=== PATIENT | male | born 1990 | race Caucasian/White ===

== ENCOUNTER 2018-12-06 10:36 | Emergency (ER) | payer BC ==
[2018-12-06] MEDS: Sodium Chloride 0.9% 1,000 ML IV ONE (10:45)
--- NOTE | 2018-12-06 11:28 | EDM.PDOC ---
ED HPI GENERAL MEDICAL PROBLEM - General Stated Complaint: CUT ARM Time Seen by Provider: 12/06/18 10:45 Source of Information: Reports: Patient History Limitations: Reports: No Limitations - History of Present Illness INITIAL COMMENTS - FREE TEXT/NARRATIVE: Comes in the emergency department with a left-hand laceration. Patient states that he was at home using a utility knife and slipped off the piece that he was cutting and it completed a puncture wound into his left wrist area causing a substantial amount of bleeding. Patient states he is not able to control the bleeding prior to arrival. He had gone through 2-3 paper towels and then use a towel from the bathroom without success. Patient comes in with active bleeding to the left hand. Denies any CMS concerns or decrease in range of motion. Patient denies feeling nauseated, dizzy, change in vision, abdominal pain or chest pain. His last tetanus was approximately 2 years ago. Patient denies any other injuries or concerns. Onset: Sudden Location: Reports: Upper Extremity, Left Improves with: Reports: None Worsens with: Reports: None Associated Symptoms: Reports: No Other Symptoms ED ROS GENERAL - Review of Systems Review Of Systems: See Below Constitutional: Reports: No Symptoms HEENT: Reports: No Symptoms Respiratory: Reports: No Symptoms Cardiovascular: Reports: No Symptoms Endocrine: Reports: No Symptoms GI/Abdominal: Reports: No Symptoms : Reports: No Symptoms Musculoskeletal: Reports: No Symptoms Skin: Reports: No Symptoms Neurological: Reports: No Symptoms Psychiatric: Reports: No Symptoms Hematologic/Lymphatic: Reports: No Symptoms Immunologic: Reports: No Symptoms ED EXAM, GENERAL - Physical Exam Exam: See Below Exam Limited By: No Limitations General Appearance: Alert, WD/WN, No Apparent Distress Head: Atraumatic, Normocephalic Neck: Normal Inspection, Supple, Non-Tender Respiratory/Chest: No Respiratory Distress, Lungs Clear, No Accessory Muscle Use , Chest Non-Tender Cardiovascular: Normal Peripheral Pulses, Regular Rate, Rhythm Peripheral Pulses: 2+: Radial (L), Radial (R) GI/Abdominal: Normal Bowel Sounds, Soft, Non-Tender, No Distention, No Abnormal Bruit Back Exam: Normal Inspection, Full Range of Motion Extremities: Normal Inspection, Normal Range of Motion, Normal Capillary Refill , Other (puncture wound left wrist. Arterial bleeding noted. CMS intact range of motion intact. skin warm and dry, pink color ) Neurological: Alert, Oriented, CN II-XII Intact, Normal Reflexes Psychiatric: Normal Affect, Normal Mood Skin Exam: Warm, Dry, Intact, Normal Color Course - Orders/Labs/Meds Orders: Active Orders 24 hr Category Date Time Status INR,PT,PROTHROMBIN TIME [COAG] Routine Lab 12/06/18 11:03 Received Labs: Laboratory Tests 12/06/18 12/06/18 Range/Units 11:03 11:16 WBC 6.7 (4.0-10.0) x10^3/uL RBC 5.26 (4.5-6.0) x10^6/uL Hgb 15.7 (14.0-18.0) g/dL Hct 45.4 (40.0-52.0) % MCV 86.3 (78.0-93.0) fL MCH 29.8 (26.0-32.0) pg MCHC 34.6 (32.0-36.0) g/dL RDW Coeff of Rosas 12.8 (10.0-15.0) % Plt Count 244 (130-400) x10^3/uL Neut % (Auto) 60.5 (50.0-80.0) % Lymph % (Auto) 31.1 (25.0-50.0) % [place] % (Auto) 7.6 (2.0-11.0) % Eos % (Auto) 0.4 (0.0-4.0) % Baso % (Auto) 0.4 (0.2-1.2) % POC Sodium 141 (138-146) mmol/L POC Potassium 4.1 (3.5-4.9) mmol/L POC Chloride 104 (98-109) mmol/L POC Total CO2 24 (24-29) mmol/L POC Anion Gap 18 POC BUN 10 (8-26) mg/dL POC Creatinine 0.9 (0.6-1.3) mg/dL POC Glucose 82 (70-105) mg/dL Departure - Departure Time of Disposition: 11:07 Disposition: DC/Tfer to Acute Hospital 02 Condition: Good Clinical Impression: Arterial hemorrhage Wrist laceration Qualifiers: Encounter type: initial encounter Laterality: left Qualified Code(s): S61.512A - Laceration without foreign body of left wrist, initial encounter - Discharge Information *PRESCRIPTION DRUG MONITORING PROGRAM REVIEWED*: Not Applicable *COPY OF PRESCRIPTION DRUG MONITORING REPORT IN PATIENT THEODORA: Not Applicable Referrals: PCP,None [Primary Care Provider] - Forms: Interfacility Transfer EMTALA - My Orders Last 24 Hours: My Active Orders 12/06/18 11:03 INR,PT,PROTHROMBIN TIME [COAG] Routine - Assessment/Plan Last 24 Hours: My Active Orders 12/06/18 11:03 INR,PT,PROTHROMBIN TIME [COAG] Routine Assessment:: 1. left wrist injury with arterial bleed Plan: 1. direct pressure and arm elevation 2. Contact made with Dr. Caesar Leo who will assume care of patient as a direct admit to ER. 3. Pt will be transported with EMS. Bleeding is controlled currently with direct pressure. I'm tourniquet was sent along with the patient uncontrolled bleeding developed. 4. While awaiting Hospital acceptance Labs were drawn. 5. All questions and concerns addressed prior to discharge
== END 2018-12-06 11:07 | disposition short-term general hospital (02) ==
LOC: VM.ED 10:36
DX: S61.512A Laceration without foreign body of left wrist, initial encounter (principal); W26.0XXA Contact with knife, initial encounter
CPT/HCPCS: 36415; 80047; 85025; 85610; 99285; J7030